=== PATIENT | female | born 1990 ===

== ENCOUNTER 2022-06-29 10:02 | Outpatient (REF) | payer OTHER, SELFPAY ==
[2022-06-29 17:53] LABS: CT PCR NOT DETECTED (Not Detect.); NG PCR NOT DETECTED (Not Detect.)
[2022-06-30 13:01] LABS: BV Int Neg Control Negative (Negative); BV Int Pos Control Positive (Positive)
[2022-07-16 03:38] LABS: HPV 16 RNA NOT DETECTED (NOT DETECTED); HPV mRNA E6/E7 rflx Detected (Not Detected)
== END 2022-06-29 10:03 | disposition home or self-care (01) ==
LOC: HO.LNP 10:02
PROVIDERS: PCP Internal Medicine; Visit Provider Advanced Practice Midwife
DX: Z01.419 Encounter for gynecological examination (general) (routine) without abnormal findings (principal); Z11.51 Encounter for screening for human papillomavirus (HPV); Z20.2 Contact with and (suspected) exposure to infections with a predominantly sexual mode of transmission
CPT/HCPCS: 0353U; 87480; 87510; 87624; 87625; 87660; 88142

== ENCOUNTER 2023-03-16 07:16 | Outpatient (AMB) | payer OTHER, SELFPAY ==
--- NOTE | 2023-03-16 07:30 | A.OFFPC_ITS ---
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 Last Pap smear was June 2022 and was HPV positive. She is morbidly obese with a BMI of 41.9 and declines weight loss surgery. Would like to try Wegovy. No chest pain or shortness of breath. [facility] Surgical History History of bilateral breast reduction surgery History of cosmetic surgery History of tooth extraction Family History Mother Hypertension Breast cancer Sleep apnea Asthma Mental health disorder Father Hypertension Hypercholesteremia Brother Mental health disorder Social History Housing: Apartment Alcohol intake: current Alcohol intake frequency: holidays/special occasions only Alcohol type: wine Patient Tobacco Use Status: Never used Tobacco e-Cigarette/Vaping Use: Never Used Second Hand Smoke Exposure: No service: No Current occupational status: employed Current occupational exposures/hazards: No Cognitive needs: No Hearing needs: No Vision needs: No Questionnaire PHQ-9 Over the last 2 weeks, how often have you been bothered by any of the following problems? 1. Little interest or pleasure in doing things: not at all 2. Feeling down, depressed, or hopeless: not at all 3. Trouble falling or staying asleep, or sleeping too much: not at all 4. Feeling tired or having little energy: not at all 5. Poor appetite or overeating: not at all 6. Feeling bad about yourself - or that you are a failure or have let yourself or your family down: not at all 7. Trouble concentrating on things, such as reading the newspaper or watching television: not at all 8. Moving or speaking so slowly that other people could have noticed. Or the opposite - being so fidgety or restless that you have been moving around a lot more than usual: not at all 9. Thoughts that you would be better off or of hurting yourself in some way: not at all Total score: 0 Depression Screening Interpretation: Negative Depression Screening Done: Yes 53197 - PHQ-9 Billing: Yes Source: Developed by Drs. Sanchez Godron, Claudine Membreno, Ismael Justice and colleagues, with an educational cassandra from [employer]. Thrive Questionnaire Date Thrive assessed: 03/16/23 I am a: Patient What is your living situation today?: I have a steady place to live Within the past 12 months, did the food you bought not last and you didn't have the money to get more?: Never true Within the past 12 months, did you worry whether your food would run out before you got money to buy more?: Never true Do you have trouble paying for medicines?: No Do you have trouble getting transportation to medical appointments?: No Do you have trouble paying your heating and electricity bill?: No Do you have trouble taking care of your child, family member or friend?: No Do you have trouble with day-to-day activities such as bathing, preparing meals, shopping, managing finances, etc.?: No Are you currently unemployed and looking for a job?: No Are you interested in more education?: No Please select the resources that you would like help with: None Currently or been in a relationship where the following occur: no concerns reported AUDIT C Alcohol Use Questionnaire (AUDIT-C) 1. How often do you have a drink containing alcohol?: Monthly or less 2. How many drinks containing alcohol do you have on a typical day when you are drinking?: 1 or 2 3. How often do you have six or more drinks on one occasion?: Never Total Score: 1 Score Reviewed/Action Taken: No RACHEL-7 AMB Questionnaire RACHEL-7 Date RACHEL - 7 assessed: 03/16/23 Feeling nervous, anxious, or on edge: 2 = More than half the days Not being able to stop or control worryin = Not at all Worrying too much about different things: 0 = Not at all Trouble relaxin = Not at all Being so restless that it is hard to sit still: 0 = Not at all Becoming easily annoyed or irritable: 0 = Not at all Feeling afraid as if something awful might happen: 0 = Not at all Total RACHEL-7 score (0-4 normal; 5-9 mild; 10-14 moderate; 15-21 severe): 2 Source: Developed by Drs. Sanchez Gordon, Claudine Membreno, Ismael Justice and colleagues, with an educational cassandra from [employer]. RACHEL-7 Assessment Billing RACHEL-7 Assessment Tool: RACHEL-7 Assessment 44838 Review of Systems Const All systems reviewed & are unremarkable except as noted in HPI and below Eyes Reports no additional complaints, Denies change in vision and Denies other visual disturbances Card Denies chest pain at rest, Denies chest pain with activity, Denies edema, Denies irregular heart rhythm, Denies claudication, Denies dyspnea, Denies dyspnea on exertion, Denies orthopnea, Denies paroxysmal nocturnal dyspnea and Denies slow heart rate Resp Denies cough, Denies dyspnea and Denies dyspnea on exertion GI Denies abdominal pain, Denies change in bowel habits, Denies excessive flatus, Denies nausea and Denies vomiting Denies urinary incontinence, Denies urinary hesitancy and Denies urinary urgency Musc Denies abnormal gait, Denies atrophy, Denies deformity and Denies limited range of motion Skin/Breast Denies bleeding lesions, Denies changing lesions and Denies rash Neuro Denies abnormal gait, Denies behavioral changes, Denies confusion and Denies lack of coordination Psych Denies behavioral changes and Denies confusion Physical exam (Primary Care) Tobacco/Smoking Status: Tobacco use Status Tobacco use date assessed 03/11/22 03/11/22 07:39 Patient Tobacco Use Status Never used Tobacco 03/11/22 07:39 e-Cigarette/Vaping Use Never Used 03/11/22 07:39 Depression Screening Interpretation: Negative Thrive Assessment: Date of Thrive Assessment Date Thrive assessed 03/11/22 03/11/22 07:39 Currently or been in a relationship where the following occur: no concerns reported Const General: No confusion Orientation/consciousness: patient oriented x3 and No confusion HENMT Head: Yes normal to inspection, Yes normocephalic and Yes atraumatic Ears: external ears normal Eyes General: appearance normal, both eyes and all related structures Eyelids: Yes eyelids normal Conjunctivae: conjunctivae normal Neck Neck: Yes normal visual inspection and Yes supple Resp Effort & Inspection: normal respiratory effort Auscultation: clear to auscultation bilaterally Cardio Jugular venous distension: no JVD Rate: regular rate Rhythm: regular rhythm Heart sounds: S1 normal heart sound present and S2 normal heart sound present GI Inspection: Yes normal to inspection Palpation (GI): Soft to palpation and nontender Auscultation: normal bowel sounds Skin General skin exam: no rashes or lesions noted Neuro General: patient oriented x3, no focal motor deficits and No confusion Extrem General: Yes full ROM Psych Appearance: grossly normal Office Procedures Flu Questionnaire Does the patient have a severe egg allergy?: No Immunizations flu vacc [id number] 6mos up(PF) 60 mcg(15 mcgx4)/0.5 mL IM syringe Performing Provider: Madelin Rodriguez MD [facility] Documented (not given) by: RICHI Poole on 03/16/23 07:37 Reason Not Given: Patient Refused Assessment and Plan Assessment & Plan (1) Physical exam: Code(s): Z00.00 - Encounter for general adult medical examination without abnormal findings Plan: Repeat in a year. (2) Morbid obesity with BMI of 40.0-44.9, adult: Code(s): E66.01 - Morbid (severe) obesity due to excess calories; Z68.41 - Body mass index [BMI] 40.0-44.9, adult Plan: Start diet and exercise. Start Wegovy. Declines weight loss surgery. BMI goal is less than 30. Orders: Orders Influenza [id number] Immunization Today Z23 - Encounter for immunization Lipid Panel Today Z00.00 - Encounter for general adult medical examination without abnormal findings Complete Blood Count Auto Diff Today E66.01 - Morbid (severe) obesity due to excess calories, Z68.41 - Body mass index [BMI] 40.0-44.9, adult Thyroid Stimulating Hormone Today E66.01 - Morbid (severe) obesity due to excess calories, Z68.41 - Body mass index [BMI] 40.0-44.9, adult Comprehensive [place]. Panel Fast Today Z00.00 - Encounter for general adult medical examination without abnormal findings Medications: New 2 semaglutide (weight loss) (Wegovy) administer weeks 1 through 4 of therapy 0.25 mg (0.5 mL) subcut QWEEK 28 days 2 mL 0RF E66.01 - Morbid (severe) obesity due to excess calories, Z68.41 - Body mass index [BMI] 40.0-44.9, adult sertraline 25 mg PO DAILY 90 days 90 tabs 1RF F41.9 - Anxiety disorder, unspecified Coding Level of Care Code Est Pt Prev Care 18-39y(11156) Diagnoses Physical exam Z00.00 Morbid obesity with BMI of 40.0-44.9, adult E66.01; Z68.41 Additional Codes RACHEL-7 Assessment Billing - RACHEL-7 Assessment Tool: RACHEL-7 Assessment [id number] ([id number]) Time Spent (min) 31
[2023-03-16 07:31] VITALS: BP 110/80; BMI 41.9
== END 2023-03-16 07:47 | disposition home or self-care (01) ==
PROVIDERS: Visit Provider Internal Medicine
DX: Z00.00 Encounter for general adult medical examination without abnormal findings (principal); E66.01 Morbid (severe) obesity due to excess calories; Z68.41 Body mass index [BMI] 40.0-44.9, adult
CPT/HCPCS: 99395

== ENCOUNTER 2023-10-25 11:23 | Outpatient (REF) | payer OTHER, SELFPAY ==
[2023-10-26 03:38] LABS: CT PCR NOT DETECTED (Not Detect.); NG PCR NOT DETECTED (Not Detect.)
[2023-10-26 11:45] LABS: Bacterial Vaginosis PCR NEGATIVE (Negative); Candida Group PCR NOT DETECTED (Not Detect); Candida glab krusei PCR DETECTED (Not Detect); Trichomonas vaginalis PCR NOT DETECTED (Not Detect)
[2023-10-28 16:14] LABS: HPV mRNA E6/E7 Detected (Not Detected)
== END 2023-10-25 11:24 | disposition home or self-care (01) ==
LOC: HO.LAB 11:23
PROVIDERS: PCP Internal Medicine; Visit Provider Advanced Practice Midwife
DX: Z01.419 Encounter for gynecological examination (general) (routine) without abnormal findings (principal); Z11.51 Encounter for screening for human papillomavirus (HPV); Z20.2 Contact with and (suspected) exposure to infections with a predominantly sexual mode of transmission; N89.8 Other specified noninflammatory disorders of vagina
CPT/HCPCS: 0352U; 36415; 87491; 87591; 87624; 88175

== ENCOUNTER 2023-10-25 11:23 | Outpatient (AMB) | payer OTHER, SELFPAY ==
[2023-10-25 11:44] VITALS: BP 118/70; BMI 43.5
--- NOTE | 2023-10-25 11:44 | A.OFFVIS_ITS ---
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 She is currently planning to be abstinent. 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 She will be switching primary care providers in the coming future. She is wanting to get healthier. [facility] Surgical History History of bilateral breast reduction surgery History of cosmetic surgery History of tooth extraction Family History Mother Hypertension Breast cancer Sleep apnea Asthma Mental health disorder Father Hypertension Hypercholesteremia Brother Mental health disorder Social History Housing: Apartment Alcohol intake: current Alcohol intake frequency: holidays/special occasions only Alcohol type: wine Patient Tobacco Use Status: Never used Tobacco e-Cigarette/Vaping Use: Never Used Second Hand Smoke Exposure: No service: No Current occupational status: employed Current occupational exposures/hazards: No Cognitive needs: No Hearing needs: No Vision needs: No Female Reproductive History Menstrual Age of Menarche: 12 Duration of menses: 3-5 days Date of last menstrual period: 09/29/23 control method: none Total pregnancies: 0 Date of last pap smear: 06/30/22 (negative,hpv+) Physical Exam Vital Signs: BMI result Body Mass Index 43.5 Const General: healthy appearing, comfortable, no acute distress, well developed and alert Nutritional Appearance: average body habitus Orientation/consciousness: patient oriented x3 Limitations: no limitations HEENT Head: Yes normocephalic Neck Neck: Yes normal visual inspection Chest Chest palpation & inspection: normal inspection of the chest Breast/axilla inspection: normal inspection of the breasts and normal inspection of the axillae Breast/axilla palpation: normal palpation of the breasts and normal palpation of the axillae Resp Effort & Inspection: normal respiratory effort GI Inspection: Yes normal to inspection, No Abdominal wall edema and No distended Palpation (GI): Soft to palpation and nontender General: Yes bladder normal to palpation External Female Exam: normal external appearance and normal appearance of the urethra Speculum Exam - Vagina: normal appearance of the vagina, normal palpation and normal vaginal discharge Speculum Exam - Cervix: normal appearance of the cervix, normal palpation and nontender Bimanual exam- vagina & uterus: normal bimanual exam, normal palpation, uterine size normal, bladder normal to palpation, consistency normal, normal palpation, uterine mobility normal, uterine shape normal, No Cervical tenderness present, non-tender and no cervical motion tenderness Bimanual Exam- Adnexa, other: normal adnexae, no masses, normal and No adnexal tenderness Neuro General: patient oriented x3 Results Reviewed Results Reviewed: faith: Yesi Hatfield Age/Sex: 31/F Attending: Kiarra Ricks CNM : 1990 Submitted by: Kiarra Ricks CNM Copies to: Madelin Pendleton MD MR #: [id number] Status: DEP REF Collected: 06/29/22 Location: [facility] Received: 06/30/22 ADDENDUM REPORT Addendum Addendum #1 HPV mRNA E6/E7: DETECTED This assay detects E6/E7 viral messenger RNA (mRNA) from 14 high-risk HPV types (16, 18, 31, 33, 35, 39, 45, 51, 52, 56, 58, 59, 66, 68) HPV Type 16 RNA: Not Detected HPV Type 18/45 RNA: DETECTED HPV testing performed by [employer], [place]. See reference laboratory portion of the EMR for entire report. Electronically Signed By: Radha Beverly 07/22/221931 Interpretation Satisfactory for evaluation. Negative for intraepithelial lesion or malignancy. Clinical Information LMP: 06/19/22 Previous PAP test: 2019, WNL Material Received ThinPrep-Cervical Copies To Kiarra Ricks [address] Zhang [address] [place] [id number] Patient: Yesi Hatfield Age/Sex: 31/F MR#: [id number] Page 1 of 2 Assessment & Plan Assessment & Plan (1) Vaso-vagal reaction: Comment: With Pap smear; patient states it happens with blood draws as well. Code(s): R55 - Syncope and collapse Category: Medical (2) Well woman exam with routine gynecological exam: Comment: Speculum and Pap done; bimanual deferred secondary to vasovagal reaction>.. Code(s): Z01.419 - Encounter for gynecological examination (general) (routine) without abnormal findings Category: Medical (3) Cervical cancer screening: Comment: 06/29/2022 Pap is negative but HPV got omitted. I am ordering it now.-07/27/2022 high risk HPV is positive. She needs repeat Pap smear next year Code(s): Z12.4 - Encounter for screening for malignant neoplasm of cervix Category: Medical (4) Screen for sexually transmitted diseases: Code(s): Z11.3 - Encounter for screening for infections with a predominantly sexual mode of transmission Category: Medical (5) Morbid obesity with BMI of 40.0-44.9, adult: Code(s): E66.01 - Morbid (severe) obesity due to excess calories; Z68.41 - Body mass index [BMI] 40.0-44.9, adult Category: Medical Plan -----Discussed in this visit the following: healthy balanced diet, regular and consistent exercise, getting recommended health screens, doing the best she can for her particular health concerns, kegel exercises, pap smear screening and followup recommendations, mammography screening and SBE, normal changes in cycles in her life stage--- Reviewed her wonderful plans to embrace again, and plans to continue working towards a healthier life. Labs were in the system that were for fasting labs from February from her [facility] so she is going to get those done. Full and wonderful conversation about work experiences and wisdom gained. 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 Issues around HPV discussed in detail. Currently her periods are regular she is aware of symptoms of ovulation and premenstrual symptoms she has no issues with missed menses or increased facial hair or any other indications that would warrant any testing for PCOS. A TSH level was ordered by her primary care provider along with fasting metabolic labs and lipids screens. Note she had no vasovagal response this time. She does intend to inform calcine furnace loader of her fear of needles. Orders: Orders Hepatitis B Surface Antigen Today E66.01 - Morbid (severe) obesity due to excess calories, R55 - Syncope and collapse, Z01.419 - Encounter for gynecological examination (general) (routine) without abnormal findings, Z11.3 - Encounter for screening for infections with a predominantly sexual mode of transmission, Z12.4 - Encounter for screening for malignant neoplasm of cervix, Z68.41 - Body mass index [BMI] 40.0-44.9, adult Hepatitis C Antibody Today E66.01 - Morbid (severe) obesity due to excess calories, R55 - Syncope and collapse, Z01.419 - Encounter for gynecological examination (general) (routine) without abnormal findings, Z11.3 - Encounter for screening for infections with a predominantly sexual mode of transmission, Z12.4 - Encounter for screening for malignant neoplasm of cervix, Z68.41 - Body mass index [BMI] 40.0-44.9, adult HIV Ab/Ag Today E66.01 - Morbid (severe) obesity due to excess calories, R55 - Syncope and collapse, Z01.419 - Encounter for gynecological examination (general) (routine) without abnormal findings, Z11.3 - Encounter for screening for infections with a predominantly sexual mode of transmission, Z12.4 - Encounter for screening for malignant neoplasm of cervix, Z68.41 - Body mass index [BMI] 40.0-44.9, adult Syphilis Screen Today E66.01 - Morbid (severe) obesity due to excess calories, R55 - Syncope and collapse, Z01.419 - Encounter for gynecological examination (general) (routine) without abnormal findings, Z11.3 - Encounter for screening for infections with a predominantly sexual mode of transmission, Z12.4 - Encounter for screening for malignant neoplasm of cervix, Z68.41 - Body mass index [BMI] 40.0-44.9, adult Coding Level of Care Code Est Pt Prev Care 18-39y(48126) Diagnoses Vaso-vagal reaction R55 Well woman exam with routine gynecological exam Z01.419 Cervical cancer screening Z12.4 Screen for sexually transmitted diseases Z11.3 Morbid obesity with BMI of 40.0-44.9, adult E66.01; Z68.41
== END 2023-10-25 13:24 | disposition home or self-care (01) ==
LOC: HO.HWSM 11:23
PROVIDERS: PCP Internal Medicine; Visit Provider Advanced Practice Midwife
DX: Z01.419 Encounter for gynecological examination (general) (routine) without abnormal findings (principal); R55 Syncope and collapse; E66.01 Morbid (severe) obesity due to excess calories; Z68.41 Body mass index [BMI] 40.0-44.9, adult
CPT/HCPCS: 99395

== ENCOUNTER 2023-10-28 11:19 | Outpatient (REF) | payer OTHER, SELFPAY ==
[2023-10-28 12:48] LABS: HBsAGNum1 0.23 S/CO (0.00-0.99); HIV AB/AG Nonreactive (Nonreactive); HIV Num 1 0.05 S/CO (0.00-0.99); Hepatitis B Surface Antigen Negative (Negative); ~HepC Num1 0.19 S/CO (0.00-0.79); ~Hepatitis C Antibody Nonreactive (Nonreactive)
[2023-10-28 13:13] LABS: Syphilis Screen Nonreactive (Nonreactive)
== END 2023-10-28 11:20 | disposition home or self-care (01) ==
LOC: HO.LAB 11:19
PROVIDERS: Absent Provider Internal Medicine; PCP Internal Medicine; Visit Provider Advanced Practice Midwife
DX: Z01.419 Encounter for gynecological examination (general) (routine) without abnormal findings (principal); E66.01 Morbid (severe) obesity due to excess calories; Z68.41 Body mass index [BMI] 40.0-44.9, adult; R55 Syncope and collapse; Z12.4 Encounter for screening for malignant neoplasm of cervix; Z11.3 Encounter for screening for infections with a predominantly sexual mode of transmission
CPT/HCPCS: 36415; 86780; 86803; 87340; 87389

== ENCOUNTER 2023-12-08 14:48 | Outpatient (AMB) | payer OTHER, SELFPAY ==
--- NOTE | 2023-12-08 14:58 | MHC.OFFVIS ---
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 Information Interpreted: non-clinical & clinical Retail Advertising Sales Manager: Retail Advertising Sales Manager Present (Татьяна STODDARD) Accompanied by: Self / Same As Patient Allergies No Known Allergies Allergy (Verified 12/08/23 15:04) HPI Comments Details: Presenting for colposcopy regarding Pap smear showing ascus/HPV E6 E7 positive, HPV 16/18/45 negative PFSH Surgical History History of bilateral breast reduction surgery History of cosmetic surgery History of tooth extraction Family History Mother Hypertension Breast cancer Sleep apnea Asthma Mental health disorder Father Hypertension Hypercholesteremia Brother Mental health disorder Social History Housing: Apartment Alcohol intake: current Alcohol intake frequency: holidays/special occasions only Alcohol type: wine Patient Tobacco Use Status: Never used Tobacco e-Cigarette/Vaping Use: Never Used Second Hand Smoke Exposure: No service: No Current occupational status: employed Current occupational exposures/hazards: No Cognitive needs: No Hearing needs: No Vision needs: No Female Reproductive History Menstrual Age of Menarche: 12 Review of Systems Const All systems reviewed & are unremarkable except as noted in HPI and below Reports as per HPI and Reports no additional complaints GI Reports no additional complaints Reports no additional complaints Physical Exam Vital Signs: BMI result Body Mass Index 43.3 Office Procedures Colposcopy Colposcopy: Pre-Procedure Counseling: Before beginning the procedure, I conducted comprehensive counseling with the patient. We thoroughly discussed the procedure itself, including its details, alternatives, and all associated risks. This included but not limited to the following complications such as bleeding, infection, and injury to the vagina, bladder, and vessels, as well as the potential need for transfusion with all its associated risks. Subsequently, the patient sign the consent. Pap smear result: Ascus/HPV E6 E7 positive Urine test in office = Negative Procedure: During the procedure, the following steps were performed: A speculum was inserted, and acetic acid was applied. Colposcopy was conducted, allowing visualization of the transformation zone. Acetowhite lesions were identified at the 5+6+8 o'clock position. Cervical biopsies were obtained from the 5+6+8 o'clock position, followed by an endocervical curettage (ECC). Vaginoscopy of the upper vagina revealed no evidence of aceto-white lesions. Hemostasis was achieved using Monsel solution, and the patient tolerated the procedure well. Post-Procedure Instructions: The patient was advised to promptly contact the office or the after hours answering service or go to the emergency room if experiencing a temperature exceeding 100.4?F, abdominal pain, nausea/vomiting, or bleeding. Additionally, the patient was instructed to abstain from vaginal intercourse and bathtub use. The patient confirmed understanding of these instructions. Discharge Instructions: The patient was instructed to schedule a follow-up appointment in 2 weeks for further evaluation and management. Please note that this note was generated using a voice recognition program, and errors may have occurred during assembler steam and gas turbine. [id number] of cervix including upper vagina with biopsy and ECC Procedure code (CPT) selection complete Results AMB Test Urine AMB Test Urine Negative Last Edit by Татьяна Montejo CMA on 12/08/23 15:13 Results Reviewed Results Reviewed: Laboratory Last Values Tst Clinic Negative 12/08/23 15:13 Assessment & Plan Assessment & Plan (1) ASCUS with positive high risk HPV cervical: Code(s): R87.610 - Atypical squamous cells of undetermined significance on cytologic smear of cervix (ASC-US); R87.810 - Cervical high risk human papillomavirus (HPV) DNA test positive Category: Medical Plan: Discussed with the patient the result of her abnormal pap, its significance, risk of progression, persistence, and regression. the false positive/negative rate of a Pap smear as a screening test in detecting cervical cancer and the indication for a diagnostic test -colposcopy, biopsy, endocervical curettage. The patient verbalized understanding and agreed with the plan, all questions answered. Colposcopy/biopsy/ECC done, see procedure note Orders: Orders AMB HCG Urine Test Today Z32.02 - Encounter for test, result negative AMB Colposcopy Today R87.610 - Atypical squamous cells of undetermined significance on cytologic smear of cervix (ASC-US), R87.810 - Cervical high risk human papillomavirus (HPV) DNA test positive Coding Level of Care Code Procedure Only Diagnoses ASCUS with positive high risk HPV cervical R87.610; R87.810 CPT Codes Colposcopy - CPT: 53243-Jolbgkelx of cervix including upper vagina with biopsy and ECC ([id number])
[2023-12-08 15:04] VITALS: BMI 43.3
== END 2023-12-08 15:59 | disposition home or self-care (01) ==
PROVIDERS: PCP Internal Medicine; Visit Provider Obstetrics & Gynecology
DX: R87.610 Atypical squamous cells of undetermined significance on cytologic smear of cervix (ASC-US) (principal); R87.810 Cervical high risk human papillomavirus (HPV) DNA test positive; Z32.02 Encounter for pregnancy test, result negative
CPT/HCPCS: 57454

== ENCOUNTER 2023-12-08 14:48 | Outpatient (REF) | payer OTHER, SELFPAY | END 2023-12-08 14:49 | disposition home or self-care (01) | LOC: HO.LNP 14:48 | PROVIDERS: PCP Internal Medicine; Visit Provider Obstetrics & Gynecology | DX: R87.610 Atypical squamous cells of undetermined significance on cytologic smear of cervix (ASC-US) (principal); R87.810 Cervical high risk human papillomavirus (HPV) DNA test positive | CPT/HCPCS: 57454; 81025; 88305 ==

== ENCOUNTER 2024-01-03 12:09 | Outpatient (AMB) | payer OTHER, SELFPAY ==
[2024-01-03 12:11] VITALS: BMI 43.3
--- NOTE | 2024-01-03 12:11 | MHC.OFFVIS ---
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 The patient is doing well with no complaints. The pathology showed the following: A. Endocervix, curettage: Endocervical mucosa within normal limits. B. Cervix, 5 o'clock, biopsy: - Low-grade squamous intraepithelial lesion (LEXI 1). - Endocervical mucosa within normal limits. C. Cervix, 6 o'clock, biopsy: Squamous and endocervical mucosa within normal limits. D. Cervix, 8 o'clock, biopsy: Squamous and endocervical mucosa within normal limits [facility] Surgical History History of bilateral breast reduction surgery History of cosmetic surgery History of tooth extraction Family History Mother Hypertension Breast cancer Sleep apnea Asthma Mental health disorder Father Hypertension Hypercholesteremia Brother Mental health disorder Social History Housing: Apartment Alcohol intake: current Alcohol intake frequency: holidays/special occasions only Alcohol type: wine Patient Tobacco Use Status: Never used Tobacco e-Cigarette/Vaping Use: Never Used Second Hand Smoke Exposure: No service: No Current occupational status: employed Current occupational exposures/hazards: No Cognitive needs: No Hearing needs: No Vision needs: No Female Reproductive History Menstrual Age of Menarche: 12 Review of Systems Const All systems reviewed & are unremarkable except as noted in HPI and below Reports as per HPI and Reports no additional complaints GI Reports no additional complaints Reports no additional complaints Physical Exam Vital Signs: BMI result Body Mass Index 43.3 Assessment & Plan Assessment & Plan (1) Dysplasia of cervix, low grade (LEXI 1): Code(s): N87.0 - Mild cervical dysplasia Category: Medical Plan: Discussed with the patient the pathology results of the colposcopy biopsies & endocervical curettage ( mild dysplasia-LEXI 1). Discussed with the patient the sensitivity specificity, positive and negative predictive value in detecting cervical cancer in addition discussed the regression, persistence and progression rates. Recommended co-testing in 12 months, if cytology and or HPV are abnormal will proceed was colposcopy biopsy and endocervical curettage, if lesions gets worse or stays persistent for 2 years will proceed with loop electric excision procedure. Instructions given to the patient to schedule a co test appointment in 1 year. All questions answered the patient verbalized understanding. Coding Level of Care Code Est Pt Level 3 (21499) Diagnoses Dysplasia of cervix, low grade (LEXI 1) N87.0
== END 2024-01-03 12:31 | disposition home or self-care (01) ==
LOC: HO.HWS 12:09
PROVIDERS: PCP Internal Medicine; Visit Provider Obstetrics & Gynecology
DX: N87.0 Mild cervical dysplasia (principal)
CPT/HCPCS: 99213

== ENCOUNTER → 2024-01-03 12:09 | Outpatient (BNVA) | payer OTHER, SELFPAY | PROVIDERS: PCP Internal Medicine; Visit Provider Obstetrics & Gynecology ==

== ENCOUNTER 2024-03-19 10:26 | Outpatient (AMB) | payer OTHER, SELFPAY ==
--- NOTE | 2024-03-19 10:28 | A.OFFPC_ITS ---
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 Accompanied by: Self / Same As Patient Allergies No Known Allergies Allergy (Verified 03/19/24 10:57) Medication List - Last Reconciled 03/19/24 by Madelin Rodriguez MD duloxetine 40 mg PO BID Tobacco use date assessed: 03/19/24 Dental Screening Dental Screen Date: 03/19/24 Did you have a dental visit in the last 12 months?: Yes Did you have a dental problem in the last 6 months where you did not have access to dental care?: No Was dental information given to patient?: Patient has dentist HPI HPI Comments History of Present Illness Details The patient is a 33-year-old female presenting for her routine physical examination. She previously had a Pap smear in 2022, which tested positive for HPV, prompting a follow-up. This resulted in an irregular Pap smear requiring a biopsy, which ultimately showed a benign lesion. The patient expressed anxiety regarding these findings, noting that they exacerbated her existing depression and anxiety. She has a history of cosmetic breast reduction surgery. The family history is significant for her mother having a history of breast cancer, hypertension, asthma, and diabetes, while her father has high cholesterol and coronary artery disease. She does not report any allergies and is currently taking duloxetine 40 mg daily for depression and anxiety. Recently, she has noticed changes in her menstrual cycle, including increased bleeding and emotional symptoms. - Tdap vaccination is up to date. - No history of flu vaccination to date. - Previous Pap smear in 2022 reported as HPV positive, with subsequent biopsy confirming benign cervical lesion. - Regular psychiatric follow-up for priscilla r depressive disorder and generalized anxiety disorder. - Dietary improvements discussed, with i nterest in pursuing weight loss through pharmacological therapy. - Plan to check blood work, including ch olesterol, sugar levels, renal function, liver function, thyroid, and potassium. [facility] Surgical History History of bilateral breast reduction surgery History of cosmetic surgery History of tooth extraction Family History (Updated 03/19/24 @ 11:02 by Madelin Rodriguez MD) Mother Hypertension Breast cancer Sleep apnea Asthma Mental health disorder Diabetes mellitus Father Hypertension Hypercholesteremia CAD (coronary artery disease) Brother Mental health disorder Social History Housing: Apartment Alcohol intake: current Alcohol intake frequency: holidays/special occasions only Alcohol type: wine Patient Tobacco Use Status: Never used Tobacco e-Cigarette/Vaping Use: Never Used Second Hand Smoke Exposure: No service: No Current occupational status: employed Current occupational exposures/hazards: No Cognitive needs: No Hearing needs: No Vision needs: No Female Reproductive History Menstrual Age of Menarche: 12 Questionnaire PHQ-9 Over the last 2 weeks, how often have you been bothered by any of the following problems? 1. Little interest or pleasure in doing things: not at all 2. Feeling down, depressed, or hopeless: several days 3. Trouble falling or staying asleep, or sleeping too much: several days 4. Feeling tired or having little energy: several days 5. Poor appetite or overeating: several days 6. Feeling bad about yourself - or that you are a failure or have let yourself or your family down: several days 7. Trouble concentrating on things, such as reading the newspaper or watching television: not at all 8. Moving or speaking so slowly that other people could have noticed. Or the opposite - being so fidgety or restless that you have been moving around a lot more than usual: several days 9. Thoughts that you would be better off or of hurting yourself in some way: not at all Total score: 6 Depression Screening Interpretation: Positive Depression Screening Follow-up: Existing condition, In treatment and Follow-up Visit Requested Depression Screening Done: Yes 05679 - PHQ-9 Billing: Yes Source: Developed by Drs. Sanchez Gordon, Claudine Membreno, Ismael Justice and colleagues, with an educational cassandra from [employer] Thrive Questionnaire Date Thrive assessed: 03/19/24 I am a: Patient What is your living situation today?: I have a steady place to live Within the past 12 months, did the food you bought not last and you didn't have the money to get more?: Never true Within the past 12 months, did you worry whether your food would run out before you got money to buy more?: Never true Do you have trouble paying for medicines?: No Do you have trouble getting transportation to medical appointments?: No Do you have trouble paying your heating and electricity bill?: No Do you have trouble taking care of your child, family member or friend?: No Do you have trouble with day-to-day activities such as bathing, preparing meals, shopping, managing finances, etc.?: No Are you currently unemployed and looking for a job?: No Are you interested in more education?: No Please select the resources that you would like help with: None Currently or been in a relationship where the following occur: No concerns reported THRIVE Score: 0 AUDIT C Alcohol Use Questionnaire (AUDIT-C) 1. How often do you have a drink containing alcohol?: Monthly or less 2. How many drinks containing alcohol do you have on a typical day when you are drinking?: 1 or 2 3. How often do you have six or more drinks on one occasion?: Never Total Score: 1 RACHEL-7 AMB Questionnaire RACHEL-7 Date RACHEL - 7 assessed: 03/19/24 Feeling nervous, anxious, or on edge: 1 = Several days Not being able to stop or control worryin = Several days Worrying too much about different things: 1 = Several days Trouble relaxin = Several days Being so restless that it is hard to sit still: 0 = Not at all Becoming easily annoyed or irritable: 0 = Not at all Feeling afraid as if something awful might happen: 0 = Not at all Total RACHEL-7 score (0-4 normal; 5-9 mild; 10-14 moderate; 15-21 severe): 4 Source: Developed by Drs. Sanchez Gordon, Claudine Membreno, Ismael Justice and colleagues, with an educational cassandra from [employer] RACHEL-7 Assessment Billing RACHEL-7 Assessment Tool: RACHEL-7 Assessment 53684 Review of Systems Const All systems reviewed & are unremarkable except as noted in HPI and below Card Denies chest pain at rest, Denies chest pain with activity, Denies edema, Denies irregular heart rhythm, Denies claudication, Denies dyspnea, Denies dyspnea on exertion, Denies orthopnea, Denies paroxysmal nocturnal dyspnea and Denies slow heart rate Resp Denies cough, Denies dyspnea and Denies dyspnea on exertion GI Denies abdominal pain, Denies change in bowel habits, Denies excessive flatus, Denies nausea and Denies vomiting Denies urinary incontinence, Denies urinary hesitancy and Denies urinary urgency Musc Denies abnormal gait, Denies atrophy, Denies deformity and Denies limited range of motion Skin/Breast Denies bleeding lesions, Denies changing lesions and Denies rash Neuro Denies abnormal gait, Denies behavioral changes, Denies confusion and Denies lack of coordination Psych Denies behavioral changes and Denies confusion Physical exam (Primary Care) Vital Signs: Last Vital Signs BP 112/80 03/19/24 10:32 BMI result Body Mass Index 43.5 BMI Assessment/Plan discussion: High BMI High, discussed plan: lifestyle, weight reduction, dietary and physical activity Tobacco/Smoking Status: Tobacco use Status Tobacco use date assessed 03/19/24 03/19/24 10:32 Patient Tobacco Use Status Never used Tobacco 03/19/24 10:32 e-Cigarette/Vaping Use Never Used 03/19/24 10:32 PHQ-9: PHQ-9 Score PHQ-9: Total score 6 03/19/24 11:02 Depression Screening Interpretation: Positive Depression Screening Follow-up: Existing condition, In treatment and Follow-up Visit Requested Thrive Assessment: Date of Thrive Assessment Date Thrive assessed 03/19/24 03/19/24 10:32 Currently or been in a relationship where the following occur: No concerns reported Const General: No confusion Orientation/consciousness: patient oriented x3 and No confusion HENMT Head: Yes normal to inspection, Yes normocephalic and Yes atraumatic Ears: external ears normal Eyes General: appearance normal, both eyes and all related structures Eyelids: Yes eyelids normal Conjunctivae: conjunctivae normal Neck Neck: Yes normal visual inspection and Yes supple Resp Effort & Inspection: normal respiratory effort Auscultation: clear to auscultation bilaterally Cardio Jugular venous distension: no JVD Rate: regular rate Rhythm: regular rhythm Heart sounds: S1 normal heart sound present and S2 normal heart sound present GI Inspection: Yes normal to inspection Palpation (GI): Soft to palpation and nontender Auscultation: normal bowel sounds Skin General skin exam: no rashes or lesions noted Neuro General: patient oriented x3, no focal motor deficits and No confusion Extrem General: Yes full ROM Psych Appearance: grossly normal Office Procedures Flu Questionnaire Does the patient have a severe egg allergy?: No Immunizations Fluarix Triv [id number] (PF) 45 mcg (15 mcg x 3)/0.5 mL IM syringe Performing Provider: Madelin Rodriguez MD [place] [facility] [facility] Documented (not given) by: Jill Schneider Shawn on 03/19/24 11:19 Reason Not Given: Patient Refused Coding Level of Care Code Est Pt Level 3 (86348) Est Pt Prev Care 18-39y(94367) Diagnoses Physical exam Z00.00 Mild major depression F32.0 Morbid obesity with BMI of 40.0-44.9, adult E66.01; Z68.41 Additional Codes PHQ-9 - 25281 - PHQ-9 Billing: Yes ([id number]) RACHEL-7 Assessment Billing - RACHEL-7 Assessment Tool: RACHEL-7 Assessment 31085 ([id number]) Time Spent (min) 33 Assessment & Plan Assessment & Plan (1) Physical exam: Code(s): Z00.00 - Encounter for general adult medical examination without abnormal findings Category: Medical Plan: Repeat in a year. (2) Mild major depression: Code(s): F32.0 - Major depressive disorder, single episode, mild Category: Medical Plan: Continue duloxetine. (3) Morbid obesity with BMI of 40.0-44.9, adult: Code(s): E66.01 - Morbid (severe) obesity due to excess calories; Z68.41 - Body mass index [BMI] 40.0-44.9, adult Category: Medical Plan: Start diet and exercise. Start Zepbound if insurance approved. Orders: Orders Lipid Panel Today E66.01 - Morbid (severe) obesity due to excess calories, Z68.41 - Body mass index [BMI] 40.0-44.9, adult Thyroid Stimulating Hormone Today E66.01 - Morbid (severe) obesity due to excess calories, Z68.41 - Body mass index [BMI] 40.0-44.9, adult Free T4 (Free Thyroxine) Today E66.01 - Morbid (severe) obesity due to excess calories, Z68.41 - Body mass index [BMI] 40.0-44.9, adult Influenza [id number] Immunization Today Z23 - Encounter for immunization Comprehensive [place]. Panel Fast Today E66.01 - Morbid (severe) obesity due to excess calories, Z68.41 - Body mass index [BMI] 40.0-44.9, adult Complete Blood Count Auto Diff Today E66.01 - Morbid (severe) obesity due to excess calories, Z68.41 - Body mass index [BMI] 40.0-44.9, adult Medications: New duloxetine 40 mg (2 x 20 mg) PO DAILY 90 days 180 caps 1RF F32.0 - Major depressive disorder, single episode, mild tirzepatide (weight loss) (Zepbound) for 4 weeks 2.5 mg (0.5 mL) subcut QWEEK 4 weeks 2 mL 0RF E66.01 - Morbid (severe) obesity due to excess calories, Z68.41 - Body mass index [BMI] 40.0- 44.9, adult Patient Instructions: - Continue duloxetine as prescribed, monitoring for any side effects. - Schedule follow-ups for cervical screening as directed. - Implement dietary advice focusing on increased protein intake and reduced sugars. - Attend routine psychotherapy and psychiatric consultations. - Proceed with ordered blood work, and arrange for review of results. - Report any new or worsening symptoms, particularly related to menstruation. - Follow up if insurance does not approve medication; consider alternative weight management strategies. - Seek medical attention if experiencing severe side effects from prescribed medications.
[2024-03-19 10:32] VITALS: BP 112/80; BMI 43.5
== END 2024-03-19 11:14 | disposition home or self-care (01) ==
PROVIDERS: PCP Internal Medicine; Visit Provider Internal Medicine
DX: Z00.00 Encounter for general adult medical examination without abnormal findings (principal); F32.0 Major depressive disorder, single episode, mild; E66.01 Morbid (severe) obesity due to excess calories; Z68.41 Body mass index [BMI] 40.0-44.9, adult; Z23 Encounter for immunization

== ENCOUNTER → 2024-03-19 10:26 | Outpatient (BNVA) | payer OTHER, SELFPAY | PROVIDERS: PCP Internal Medicine; Visit Provider Internal Medicine | DX: Z00.00 Encounter for general adult medical examination without abnormal findings (principal); F32.0 Major depressive disorder, single episode, mild; E66.01 Morbid (severe) obesity due to excess calories; Z68.41 Body mass index [BMI] 40.0-44.9, adult; Z79.899 Other long term (current) drug therapy | CPT/HCPCS: 96127 ==

== ENCOUNTER 2024-04-02 08:55 | Outpatient (REF) | payer OTHER, SELFPAY ==
[2024-04-02 09:22] LABS: MANUAL DIFF FLAG NO
[2024-04-02 09:39] LABS: Basophils Percent Auto 0.4 % (0-2); Eosinophils Absolute Auto 0.1 X10*3/uL (0.0-0.4); Hematocrit 43.8 % (37.0-47.0); Hemoglobin 13.8 g/dl (12.0-16.0); Imm Gran Abs Auto 0.04 X10*3/uL (0.00-0.03); Imm Gran Pct Auto 0.4 % (0.0-0.4); Lymphocytes Absolute Auto 2.1 X10*3/uL (1.2-4.9); Lymphocytes Percent Auto 23.7 % (20-40); Mean Corpuscular HGB Conc 31.5 g/dl (31.0-35.0); Mean Corpuscular Hemoglobin 27.4 pg (27.0-33.0); Mean Corpuscular Volume 87.1 fL (80.0-98.0); Mean Platelet Volume 9.3 fL (9.4-12.3); Monocytes Absolute Auto 0.6 X10*3/uL (0.1-1.2); Monocytes Percent Auto 6.5 % (2-11); Neutrophils Absolute Auto 6.1 x10*3/uL (2.0-8.3); Platelet Count 362 X10*3/uL (160-400); Red Blood Count 5.03 X10*6/uL (4.20-5.50)
[2024-04-02 10:34] LABS: Alanine Aminotransferase 14 U/L (0-31); Albumin Level 3.6 g/dL (3.5-5.0); Alkaline Phosphatase 116 U/L (39-117); Anion Gap 12 (12-20); Aspartate Amino Transferase 42 U/L (5-31); Bilirubin Total 0.6 mg/dL (0.0-1.0); Blood Urea Nitrogen 6 mg/dL (9-16); Calcium 8.8 mg/dL (8.4-10.2); Carbon Dioxide 23 mmol/L (22-29); Chloride 110 mmol/L (96-108); Cholesterol 198 mg/dL (<200); Estimated Glomerular Filt Rate > 60; Free T4 (Free Thyroxine) 1.14 ng/dL (0.71-1.85); Glucose Fasting 90 mg/dL (60-99); HDL Cholesterol 54 mg/dL (>40); LDL Cholesterol Calculated 124 mg/dL (<100); Potassium 4.9 mmol/L (3.3-5.1); Sodium 140 mmol/L (135-145); Thyroid Stimulating Hormone 1.31 uIU/mL (0.32-4.0); Total Protein 8.2 g/dL (6.5-8.0); Triglycerides 104 mg/dL (<150)
== END 2024-04-02 08:56 | disposition home or self-care (01) ==
LOC: HO.LAB 08:55
PROVIDERS: PCP Internal Medicine; Visit Provider Internal Medicine
DX: E66.01 Morbid (severe) obesity due to excess calories (principal); Z68.41 Body mass index [BMI] 40.0-44.9, adult
CPT/HCPCS: 36415; 80053; 80061; 84439; 84443; 85025

== ENCOUNTER 2024-08-30 15:40 | Outpatient (AMB) | payer OTHER, SELFPAY ==
[2024-08-30 15:43] VITALS: BP 120/84; BMI 42.9
--- NOTE | 2024-08-30 15:43 | MHC.PC.OV ---
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: No Accompanied by: Mother Allergies No Known Allergies Allergy (Verified 08/30/24 15:53) Medication List - Last Reconciled 08/30/24 by Madelin Rodriguez MD duloxetine 40 mg (2 x 20 mg) PO DAILY 90 days tirzepatide (weight loss) (Zepbound) 2.5 mg (0.5 mL) subcut QWEEK 4 weeks Tobacco use date assessed: 08/30/24 Dental Screening Dental Screen Date: 08/30/24 Did you have a dental visit in the last 12 months?: Yes Did you have a dental problem in the last 6 months where you did not have access to dental care?: No Was dental information given to patient?: Patient has dentist HPI HPI Comments History of Present Illness Details This is a 34-year-old female with mild major depression, pure hypercholesterolemia and morbid obesity that comes today for follow-up on her conditions. Depression has markedly improved with duloxetine. She has elevated cholesterol and has been doing some dietary changes. Lipid panel will be repeated. She is morbidly obese with a BMI of 42.9 and has lost some weight with tirzepatide which will be increase today. No side effects from it. [facility] Surgical History History of bilateral breast reduction surgery History of cosmetic surgery History of tooth extraction Family History Mother Hypertension Breast cancer Sleep apnea Asthma Mental health disorder Diabetes mellitus Father Hypertension Hypercholesteremia CAD (coronary artery disease) Brother Mental health disorder Social History Housing: Apartment Alcohol intake: current Alcohol intake frequency: holidays/special occasions only Alcohol type: wine Patient Tobacco Use Status: Never used Tobacco e-Cigarette/Vaping Use: Never Used Second Hand Smoke Exposure: No service: No Current occupational status: employed Current occupational exposures/hazards: No Cognitive needs: No Hearing needs: No Vision needs: No Female Reproductive History Menstrual Age of Menarche: 12 Questionnaire PHQ-9 Over the last 2 weeks, how often have you been bothered by any of the following problems? 1. Little interest or pleasure in doing things: not at all 2. Feeling down, depressed, or hopeless: not at all 3. Trouble falling or staying asleep, or sleeping too much: not at all 4. Feeling tired or having little energy: not at all 5. Poor appetite or overeating: several days 6. Feeling bad about yourself - or that you are a failure or have let yourself or your family down: several days 7. Trouble concentrating on things, such as reading the newspaper or watching television: not at all 8. Moving or speaking so slowly that other people could have noticed. Or the opposite - being so fidgety or restless that you have been moving around a lot more than usual: not at all 9. Thoughts that you would be better off or of hurting yourself in some way: not at all Total score: 2 Depression Screening Interpretation: Positive Depression Screening Follow-up: Existing condition and Follow-up Visit Requested Depression Screening Done: Yes 09554 - PHQ-9 Billing: Yes Source: Developed by Drs. Sanchez Gordon, Claudine Membreno, Ismael Justice and colleagues, with an educational cassandra from [employer]. Thrive Questionnaire Date Thrive assessed: 08/24/24 I am a: Patient What is your living situation today?: I have a steady place to live Within the past 12 months, did the food you bought not last and you didn't have the money to get more?: Never true Within the past 12 months, did you worry whether your food would run out before you got money to buy more?: Never true Do you have trouble paying for medicines?: No Do you have trouble getting transportation to medical appointments?: No Do you have trouble paying your heating and electricity bill?: No Do you have trouble taking care of your child, family member or friend?: No Do you have trouble with day-to-day activities such as bathing, preparing meals, shopping, managing finances, etc.?: No Are you currently unemployed and looking for a job?: No Are you interested in more education?: No Please select the resources that you would like help with: None Currently or been in a relationship where the following occur: No concerns reported THRIVE Score: 0 AUDIT C Alcohol Use Questionnaire (AUDIT-C) 1. How often do you have a drink containing alcohol?: Monthly or less 2. How many drinks containing alcohol do you have on a typical day when you are drinking?: 1 or 2 3. How often do you have six or more drinks on one occasion?: Never Total Score: 1 Score Reviewed/Action Taken: No RACHEL-7 AMB Questionnaire RACHEL-7 Date RACHEL - 7 assessed: 08/30/24 Feeling nervous, anxious, or on edge: 1 = Several days Not being able to stop or control worryin = Not at all Worrying too much about different things: 1 = Several days Trouble relaxin = Several days Being so restless that it is hard to sit still: 1 = Several days Becoming easily annoyed or irritable: 0 = Not at all Feeling afraid as if something awful might happen: 0 = Not at all Total RACHEL-7 score (0-4 normal; 5-9 mild; 10-14 moderate; 15-21 severe): 4 Source: Developed by Drs. Sanchez Gordon, Claudine Membreno, Ismael Justice and colleagues, with an educational cassandra from [employer]. RACHEL-7 Assessment Billing RACHEL-7 Assessment Tool: RACHEL-7 Assessment 56283 Review of Systems Const All systems reviewed & are unremarkable except as noted in HPI and below Card Denies chest pain at rest, Denies chest pain with activity, Denies edema, Denies irregular heart rhythm, Denies claudication, Denies dyspnea, Denies dyspnea on exertion, Denies orthopnea, Denies paroxysmal nocturnal dyspnea and Denies slow heart rate Resp Denies cough, Denies dyspnea and Denies dyspnea on exertion GI Denies abdominal pain, Denies change in bowel habits, Denies excessive flatus, Denies nausea and Denies vomiting Denies urinary incontinence, Denies urinary hesitancy and Denies urinary urgency Musc Denies atrophy, Denies deformity and Denies limited range of motion Skin/Breast Denies bleeding lesions, Denies changing lesions and Denies rash Physical exam (Primary Care) Vital Signs: Last Vital Signs BP 120/84 08/30/24 15:43 BMI result Body Mass Index 42.9 BMI Assessment/Plan discussion: High BMI High, discussed plan: lifestyle, weight reduction, dietary and physical activity Tobacco/Smoking Status: Tobacco use Status Tobacco use date assessed 08/30/24 08/30/24 15:49 Patient Tobacco Use Status Never used Tobacco 08/30/24 15:48 e-Cigarette/Vaping Use Never Used 08/30/24 15:48 PHQ-9: PHQ-9 Score PHQ-9: Total score 2 08/30/24 15:48 Depression Screening Interpretation: Positive Depression Screening Follow-up: Existing condition and Follow-up Visit Requested Thrive Assessment: Date of Thrive Assessment Date Thrive assessed 08/24/24 08/30/24 15:48 Currently or been in a relationship where the following occur: No concerns reported Resp Effort & Inspection: normal respiratory effort Auscultation: clear to auscultation bilaterally Cardio Jugular venous distension: no JVD Rate: regular rate Rhythm: regular rhythm Heart sounds: S1 normal heart sound present and S2 normal heart sound present Extrem General: Yes full ROM Coding Level of Care Code Est Pt Level 3 (01730) Complex EM visit Add On G2211 Diagnoses Morbid obesity with BMI of 40.0-44.9, adult E66.01; Z68.41 Mild major depression F32.0 Pure hypercholesterolemia E78.00 Additional Codes PHQ-9 - 25867 - PHQ-9 Billing: Yes ([id number]) RACHEL-7 Assessment Billing - RACHEL-7 Assessment Tool: RACHEL-7 Assessment 03551 ([id number]) Time Spent (min) 19 Assessment & Plan Assessment & Plan (1) Morbid obesity with BMI of 40.0-44.9, adult: Code(s): E66.01 - Morbid (severe) obesity due to excess calories; Z68.41 - Body mass index [BMI] 40.0-44.9, adult Category: Medical (2) Mild major depression: Code(s): F32.0 - Major depressive disorder, single episode, mild Category: Medical (3) Pure hypercholesterolemia: Code(s): E78.00 - Pure hypercholesterolemia, unspecified Category: Medical Plan Continue duloxetine for depression. Increase tirzepatide to 5 mg. Repeat lipid panel and continue low-cholesterol diet. She was advised to do 30 minutes of exercise 5 days a week and a low calorie diet. Orders: Orders Lipid Panel 4 Months E66.01 - Morbid (severe) obesity due to excess calories, E78.5 - Hyperlipidemia, unspecified, Z68.41 - Body mass index [BMI] 40.0-44.9, adult Comprehensive [place]. Panel Fast 4 Months E66.01 - Morbid (severe) obesity due to excess calories, Z68.41 - Body mass index [BMI] 40.0-44.9, adult Referrals Lead Inspector Nutrition Referral E66.01 - Morbid (severe) obesity due to excess calories, E78.00 - Pure hypercholesterolemia, unspecified, Z68.41 - Body mass index [BMI] 40.0-44.9, adult Medications: New tirzepatide (weight loss) (Zepbound) 5 mg (0.5 mL) subcut QWEEK 4 weeks 2 mL 0RF E66.01 - Morbid (severe) obesity due to excess calories, Z68.41 - Body mass index [BMI] 40.0-44.9, adult Discontinued tirzepatide (weight loss) (Zepbound) for 4 weeks Discontinued Reason: Patient Completed Course 2.5 mg (0.5 mL) subcut QWEEK 4 weeks 2 mL 0RF E66.01 - Morbid (severe) obesity due to excess calories, Z68.41 - Body mass index [BMI] 40.0-44.9, adult
--- OUTSIDE RECORDS SUMMARY | 2024-08-30 18:05 | XMS_ITS | Data Portability ---
Author Organization [facility], [address] Address [address] [place] [address] Care Team Providers Care Byproduct Engineer Name Role Phone [facility] Primary Care Provider Assessment No assessment recorded. Plan of Treatment Reminders Order Date Submit Date Provider Last Modified By Organization Details Last Modified Time Details Appointments None recorded. Lab rapid SARS CoV 2 Ag, QL IA, respiratory specimen 2022 023 [place] [facility] [address], [address] [place], [address], 3 09:20:11 rapid flu (A+B) 2022 023 [place] [address] [address] [address], [address] [place], [address], 3 10:49:36 rapid SARS CoV 2 Ag, QL IA, respiratory specimen 2022 023 [place] [address] [address], [address] [place], [address], 3 10:49:36 Referral None recorded. Procedures None recorded. Surgeries None recorded. Imaging None recorded. Medication Orders Flonase Allergy Relief 50 mcg/actuati on nasal spray,suspe nsion 2022 023 [facility] #[id number], [address] [facility], [place], [address], 3 08:13:23 Augmentin 875 mg-125 mg tablet 2022 023 [facility] #[id number], [address] [facility], [place], [address], 08:12:57 Patient TargetsNo targets recorded. Patient Instructions Encounter Date Encounter Id Patient Instructions Last Modified By Organization Details Last Modified Time 03/31/2022 [id number] Acute Sinusitis: Care Instructions [email or web address] Not available 03/31/2022 10:49:36 08/25/2022 [id number] Acute Sinusitis: Care Instructions [email or web address] Not available 08/25/2022 09:03:42 viral infections : care instructions [email or web address] Not available 08/25/2022 09:04:33 Rest. Drink plenty of fluids. Over the counter sudafed and mucinex may be of some benefit for your symptoms. Use per package instructions. See printed instructions. Follow-up with your doctor if no improvement in a few days. Seek Emergency Medical evaluation for any worsening symptoms. [email or web address] Not available 08/25/2022 09:05:43 Reason for Referral None Reported. Results Created Date Observation Date Name Description Value Unit Range Abnormal Flag Note LastModifiedBy Organization Detail LastModifiedTime 03/31/1903/31/2022 rapid SARS CoV 2 Ag, QL IA, respi rator y speci men Unknown Analyte Normal =Negat mariano Not Available [address] [place], [address], 03/31/2022 10:13:16 03/31/19 23 03/31/2022 rapid SARS CoV 2 Ag, QL IA, respi rator y speci men Unknown Analyte negati ve Not Available [address] [place], [address], 03/31/2022 10:13:16 03/31/19 23 03/31/2022 rapid flu (A+B) Unknown Analyte Normal = Negati ve Not Available [address] [place], [address], 03/31/2022 10:13:09 03/31/19 23 03/31/2022 rapid flu (A+B) Unknown Analyte negati ve Not Available [address] [place], [address], 03/31/2022 10:13:09 03/31/19 23 03/31/2022 rapid flu (A+B) Unknown Analyte Normal = Negati ve Not Available [address] [place], [address], 03/31/2022 10:13:09 03/31/19 23 03/31/2022 rapid flu (A+B) Unknown Analyte negati ve Not Available [address] [place], [address], 03/31/2022 10:13:09 08/26/19 23 08/25/2022 rapid SARS CoV 2 Ag, QL IA, respi rator y speci men Unknown Analyte Normal =Negat mariano Not Available [address] [place], [address], 08/25/2022 09:03:38 08/26/1908/25/2022 rapid SARS CoV 2 Ag, QL IA, respi rator y speci men Unknown Analyte negati ve Not Available [address] [place], [address], 08/25/2022 09:03:38 Result Notes None recorded. Problems No Known Problems Procedures Surgical History Date Name Laterality Status Provider Name and Address Organization Details Recorded Time operation on oral cavity completed ROSENDO IVAN PA - [facility] 03/31/2022 10:09:36 Breast reduction completed ROSENDO IVAN PA - [facility] 03/31/2022 10:09:43 liposuction of subcutaneous tissue completed ROSENDO IVAN PA - [facility] 03/31/2022 10:09:50 Imaging Results None recorded. Procedure Notes None recorded. Medical Equipment None Reported. Allergies Allergen ID Allergen Name Allergen Category Reaction Reaction Severity Criticality Documentation Date Start Date Code Code System Note Provider Name and Address Organization Details Recorded Time 719392 grass pollen environme nt,medica tion Not available Not available Not available 08/25/2022 10501 UNK LATASHA mckay PA - [facility] 3 08:12:46 Medications Name Sig Start Date Stop Date Status Note LastModified by Organization Details LastModified Time Benadryl active Not Available Not Avai lable Not Available naltrexone 8 mg-bupropio n 90 mg tablet,exte nded release TAKE 2 TABLETS BY ORAL ROUTE 2 TIMES PER DAY IN THE MORNING AND EVENING active Not Available Not Available No t Available Flonase Allergy Relief 50 mcg/actuati on nasal spray,suspe nsion [place] 1 spray every day by intranasa l route as needed. 08/25 completed Not Available Not Available Not Available Vitals Date Recorded Body height Body mass index (BMI) Body weight Respiratory rate Oxygen saturation Oxygen saturation in Arterial blood by Pulse oximetry Heart rate Body temperature Systolic blood pressure Diastolic blood pressure Provider Name and Address Organization Details Last Updated DateTime 3 154.94 cm 38.9 kg/m2 43382.0 3 g 18 /min 100 % 100 % 87 /min 98.1 [degF] 118 mm[Hg] 78 mm[Hg] ROSENDO KEY RA PA - [facility] 3 10:12:23 Date Recorded Body height Body mass index (BMI) Body weight Respiratory rate Oxygen saturation Oxygen saturation in Arterial blood by Pulse oximetry Heart rate Body temperature Systolic blood pressure Diastolic blood pressure Provider Name and Address Organization Details Last Updated DateTime 3 154.94 cm 39.5 kg/m2 70884.8 1 g 18 /min 98 % 98 % 92 /min 98.2 [degF] 124 mm[Hg] 78 mm[Hg] LATASHA HATCH PA - [facility] 3 08:16:17 Social History Question Answer Notes LastModified by Organizat ion Details LastModified Time Tobacco Smoking Status Never Smoker ROSENDO MOORE-KELLY null, PA - [facility] 03/31/2022 10:10:28 Have You Recently Traveled Abroad? No Information not available 03/31/2022 Sex: Unknown Functional Status Question Answer Note LastModified by Organizat ion Details LastModified Time Do you use any illicit or recreational drugs? No Information not available 03/31/2022 Do you or have you ever used any other forms of tobacco or nicotine? No Information not available 03/31/2022 What is your level of alcohol consumption? Occasional Information not available 03/31/2022 Mental Status None recorded. Family History Relationship Description Onset Age of this Age Resolved Age Notes LastModified by Organization Details LastModified Time Unspecified Relation Asthma Not available 03/21 10:10:06 Unspecified Relation Diabetes mellitus Not available 01/2023 10:10:17 Medical History No medical history recorded. Gynecological History Statement/Question Response Date of LMP 08/14/2022 Is there any chance of ? No LMP Definite Obstetrics History GPAL:G 0 P 0 0 0 0 Immunizations Vaccine Type Date Status Note Provider Nam e and Address Organization Details Recorded Time COVID-19, mRNA, LNP-S, PF, 30 mcg/0.3 mL dose 1 completed ROSENDO MOORE-KELLY null, PA - [facility] 03/31/2022 10:07:56 HPV, quadrivalent 7 completed ROSENDO MOORE-KELLY null, PA - [facility] 03/31/2022 10:07:56 COVID-19, mRNA, LNP-S, PF, 30 mcg/0.3 mL dose 1 completed ROSENDO MOORE-KELLY null, PA - [facility] 03/31/2022 10:07:57 OPV 4 completed ROSENDO MOORE-KELLY null, PA - [facility] 03/31/2022 10:07:57 Hep B, adolescent or pediatric 3 completed ROSENDO MOORE-KELLY null, PA - [facility] 03/31/2022 10:07:57 DTP 0 completed ROSENDO MOORE-KELLY null, PA - [facility] 03/31/2022 10:07:57 HPV, quadrivalent 9 completed ROSENDO MOORE-KELLY null, PA - [facility] 03/31/2022 10:07:57 DTP 0 completed ROSENDO MOORE-KELLY null, PA - [facility] 03/31/2022 10:07:57 OPV 0 completed ROSENDO MOORE-KELLY null, PA - [facility] 03/31/2022 10:07:57 HPV, quadrivalent 8 completed ROSENDO MOORE-KELLY null, PA - [facility] 03/31/2022 10:07:57 Hep B, adolescent or pediatric 2 completed ROSENDO MOORE-KELLY null, PA - [facility] 03/31/2022 10:07:57 MMR 4 completed ROSENDO MOORE-KELLY null, PA - [facility] 03/31/2022 10:07:57 DTP 4 completed ROSENDO MOORE-KELLY null, PA - [facility] 03/31/2022 10:07:57 Tdap 0 completed ROSENDO MOORE-KELLY null, PA - [facility] 03/31/2022 10:07:57 Tdap 9 completed ROSENDO MOORE-KELLY null, PA - [facility] 03/31/2022 10:07:57 OPV 0 completed ROSENDO MOORE-KELLY null, PA - [facility] 03/31/2022 10:07:57 OPV 1 completed ROSENDO MOORE-KELLY null, PA - [facility] 03/31/2022 10:07:57 OPV 2 completed ROSENDO MOORE-KELLY null, PA - [facility] 03/31/2022 10:07:57 MMR 1 completed ROSENDO MOORE-KELLY null, PA - [facility] 03/31/2022 10:07:57 meningococcal MCV4P 8 completed ROSENDODAPHNEY MOORE-KELLY null, PA - [facility] 03/31/2022 10:07:57 DTP 1 completed ROSENDO MOORE-KELLY null, PA - [facility] 03/31/2022 10:07:57 Hep B, adolescent or pediatric 2 completed ROSENDO MOORE-KELLY null, PA - [facility] 03/31/2022 10:07:57 Td (adult), 2 Lf tetanus toxoid, preservative free, adsorbed 2 completed ROSENDO MOORE-KELLY null, PA - [facility] 03/31/2022 10:07:57 DTP 2 completed ROSENDO MOORE-KELLY null, PA - [facility] 03/31/2022 10:07:57 Past Encounters Encounter ID Performer Location Encounter Start Date Encounter Closed Date Diagnosis/Indication Diagnosis SNOMED-CT Code Diagnosis ICD10 Code Diagnosis Note [id number] [place] [address] 02/24/2020 15:10:02 02/24/2020 16:35:34 [id number] [place] [address] 06/23/2021 09:10:44 06/23/2021 11:26:25 [id number] [place] [address] 07/28/2017 16:27:32 07/28/2017 18:22:14 [id number] [place] [address] 03/09/2021 08:29:28 03/09/2021 11:21:37 [id number] [place] [address] 05/29/2019 09:36:26 05/29/2019 10:36:42 [id number] [address] [facility] [address] [place] [address] 04/18/2016 13:06:11 04/18/2016 14:16:39 [id number] CHRISTINE SWANSON [address] [facility] [address] [place] [address] 03/31/2022 09:48:41 03/31/2022 10:52:46 Acute sinusitis 80805720 J01.90 [id number] Lian Valle MD [address] [address] [place] [address] 08/25/2022 08:04:16 08/25/2022 09:27:31 Viral syndrome 348272622 B34.9 Acute sinusitis 03407679 J01.90 Health Concerns Section Related Observation LastModified by Organization Detai ls LastModified Time None Recorded Concern Status LastModified by Organization Details LastModified Time None Recorded Advance Directives Directive None Recorded Payers Insurance Date Sequence Insurance Name Policy Number Policy Morrissey Covered Member ID Morrissey Member ID Guarantor Name 08/25/2022 1 [employer]OR[employer] [id number] Yesi Hatfield [id number] Yesi Hatfield 08/25/2022 1 [facility] [id number] Yesi Hatfield [id number] Yesi Hatfield Notes Date Note Type Note Provider Name and Address Organization Details Recorded Time 03/31/2022 text/html Yesi is a 31 yo F here for evaluation of sinus pressure, nasal congestion, JURADO, and cough onset 2 weeks. Did rapid covid test and was negative. Has tried OTC meds without relief. CHRISTINE LAWRENCE JD [facility] [place], [address], PA - [facility] 03/31/2022 10:52:46 08/25/2022 text/html Sinus Complaints UCReported bypatient.Location:sin us pain; left side; right side Associated Symptoms:no nasal discharge; no fever; no nausea or vomiting; No post nasal drip; no ear fullness; no nasal itching; no eye itching; no dizziness;nasal passage blockage bilaterally;cough; Trouble breathing due to nasal congestion. Irritated throat. Onset/Timing:initially started 4days ago Quality:Mild discomfort. Duration:constant Severity:mild Context:no recent sick contacts; not worse with seasonal allergen exposure Risk Factors:no current smoking or tobacco use Alleviating factors:nothing gives relief Aggravating factors:nothing makes it worse Prior TreatmentTreated March 2022 with augmentin and flonase for sinusitis.Notes:32 year old female presenting for evaluation of chills, nasal congestion, sinus pressure (ethmoids), irritated throat, occasionally productive cough, chest congestion and body aches for the past 4 days. No fever, generalized headache, rash, stiff neck, chest pain, shortness of breath, GI symptoms. Lian Valle MD [address] [place] [address] [place], [address], PA - [facility] 08/25/2022 09:33:24 OBGyn Episode No OBEpisode recorded.
== END 2024-08-30 16:09 | disposition home or self-care (01) ==
LOC: HO.HMCH 15:41
PROVIDERS: PCP Internal Medicine; Visit Provider Internal Medicine
DX: E66.01 Morbid (severe) obesity due to excess calories (principal); Z68.41 Body mass index [BMI] 40.0-44.9, adult; F32.0 Major depressive disorder, single episode, mild; E78.00 Pure hypercholesterolemia, unspecified

== ENCOUNTER → 2024-08-30 15:40 | Outpatient (BNVA) | payer OTHER, SELFPAY | PROVIDERS: PCP Internal Medicine; Visit Provider Internal Medicine | DX: E66.01 Morbid (severe) obesity due to excess calories (principal); F32.A Depression, unspecified; E78.00 Pure hypercholesterolemia, unspecified; F32.0 Major depressive disorder, single episode, mild; Z68.41 Body mass index [BMI] 40.0-44.9, adult | CPT/HCPCS: 96127 ==

== ENCOUNTER 2024-10-08 10:44 | Outpatient (AMB) | payer OTHER, SELFPAY ==
--- NOTE | 2024-10-08 11:08 | A.OFFVIS_ITS ---
VS Expanded 10/08/24 11:11 10/10/24 14:44 Height 5 ft 1 in 5 ft 1 in Weight 224 lb 13.944 oz 225 lb BMI 42.5 42.5 Intake Visit Reasons: Pure hypercholesterolemia Allergies No Known Allergies Allergy (Verified 08/30/24 15:53) Nutrition Presentation Details: Pt presents for MNT for hypercholesterolemia Pt reports always working on diet modifications, reports wt at 245 lbs over 1 yr ago, admits to stress eating Was physically active int he past, participating in gym/sports/but this has lessened r/t knee pain typical meals: home made, when eating out choosing healthier options Sometimes skips meals has cut out sodas fast food: taco mittal, rice/tuna food frequency fruits: 0-1/d milk/ with coffee or in cereals vegetables: 1/wk fish: 1x/wk BS Monitoring Most Recent Diabetes Results: Cholesterol, (<200) 198 mg/dL 04/02/24 HDL Cholesterol, (>40) 54 mg/dL 04/02/24 Triglycerides, (<150) 104 mg/dL 04/02/24 Creatinine, (0.5-1.4) 0.74 mg/dL 04/02/24 BUN, (9-16) 6 mg/dL L 04/02/24 Sodium, (135-145) 140 mmol/L 04/02/24 Potassium, (3.3-5.1) 4.9 mmol/L 04/02/24 Chloride, (96-108) 110 mmol/L H 04/02/24 Carbon Dioxide, (22-29) 23 mmol/L 04/02/24 Calcium, (8.4-10.2) 8.8 mg/dL 04/02/24 AST, (5-31) 42 U/L H 04/02/24 ALT, (0-31) 14 U/L 04/02/24 Total Protein, (6.5-8.0) 8.2 g/dL H 04/02/24 Albumin, (3.5-5.0) 3.6 g/dL 04/02/24 MEZ-Wylcnlg-Uf.Jeor Equation Height: 5 ft 1 in Weight: 225 lb Resting Metabolic Rate: 1654.74 Calculated Activity Level: Sedentary Calories Needed to Maintain Weight: 1985.69 Diagnosis Nutrition problem #1: food nutri know defi As related to (etiology) #1: diagnosis As evidenced by (sign/symptom) #1: knowledge deficit of diet PFSH Surgical History History of bilateral breast reduction surgery History of cosmetic surgery History of tooth extraction Family History Mother Hypertension Breast cancer Sleep apnea Asthma Mental health disorder Diabetes mellitus Father Hypertension Hypercholesteremia CAD (coronary artery disease) Brother Mental health disorder Social History Housing: Apartment Alcohol intake: current Alcohol intake frequency: holidays/special occasions only Alcohol type: wine Patient Tobacco Use Status: Never used Tobacco e-Cigarette/Vaping Use: Never Used Second Hand Smoke Exposure: No service: No Current occupational status: employed Current occupational exposures/hazards: No Cognitive needs: No Hearing needs: No Vision needs: No Female Reproductive History Menstrual Age of Menarche: 12 Assessment & Plan Assessment & Plan (1) Morbid obesity with BMI of 40.0-44.9, adult: Code(s): E66.01 - Morbid (severe) obesity due to excess calories; Z68.41 - Body mass index [BMI] 40.0-44.9, adult Category: Medical Plan: Wt: 102 Kg ( 10/12 ) Est kcal needs as per MSJ: 2000 (40% carb, 30% protein/fat) Est fluid needs as per 25-30 ml/d: 3100 Est prot per day as per 1 g/kg bw: 100 Recommend fiber intake : 8-10 g per day and gradually increase to 25-28 g per day for women and 35-38 g for men or as tolerated Recommend sodium intake per day: less than 2300 mg Educated patient on: ( R = reviewed V = verbalizes understanding N/R = needs review N/A = not applicable * Food sources of carbohydrate, adequate serving sizes and its role in various health conditions: R * Differences between complex carbohydrates a simple carbohydrates, role of fiber in diet: R * Lean protein sources of foods: R * Differences between types of fats and role in diet (mono on saturated fat fatty acids, saturated fatty acids, trans fats): R V N/R * Food sources of sodium in salt and healthy modifications for heart health in kidney health: R V R/V * Vitamins and minerals: R V N/R * Healthy plate method concept: R * Physical activity: Benefits a precaution: R * Patient Instructions: Work on having 3 meals/day consisting of 45 g carb or less per meal following healthy plate method, and 0-20 g carb as snack if needed Practice mindful eating Keep hydrated by having water/almond milk, diluted beverages with water, soup , vegetables/fruits which also have water inthem Coding Level of Care Code Nutr Indiv Intake (61080) Diagnoses Morbid obesity with BMI of 40.0-44.9, adult E66.01; Z68.41 Time Spent (min) 30
[2024-10-08 11:11] VITALS: BMI 42.5
--- OUTSIDE RECORDS SUMMARY | 2024-10-08 11:50 | XMS_ITS | Data Portability ---
Author Organization [facility], [address] Address [address] [place] [address] Care Team Providers Care Consultant Dietitian Name Role Phone [facility] Primary Care Provider Assessment No assessment recorded. Plan of Treatment Reminders Order Date Submit Date Provider Last Modified By Organization Details Last Modified Time Details Appointments None recorded. Lab rapid SARS CoV 2 Ag, QL IA, respiratory specimen 2022 023 [facility] [address], [address] [place], [address], 3 09:20:11 rapid flu (A+B) 2022 023 [place] [address] [facility] [address], [address] [place], [address], 3 10:49:36 rapid SARS CoV 2 Ag, QL IA, respiratory specimen 2022 023 [place] [address] [address], [address] [place], [address], 3 10:49:36 Referral None recorded. Procedures None recorded. Surgeries None recorded. Imaging None recorded. Medication Orders Flonase Allergy Relief 50 mcg/actuati on nasal spray,suspe nsion 2022 023 [facility]/Pharmacy #[id number], [address], [place], [address], 3 08:13:23 Augmentin 875 mg-125 mg tablet 2022 023 [facility][id number], [address], [place], [address], 3 08:12:57 Patient TargetsNo targets recorded. Patient Instructions Encounter Date Encounter Id Patient Instructions Last Modified By Organization Details Last Modified Time 03/31/2022 [id number] Acute Sinusitis: Care Instructions [email or web address] Not available 03/31/2022 10:49:36 08/25/2022 [id number] Acute Sinusitis: Care Instructions [email or web address] Not available 08/25/2022 09:03:42 viral infections : care instructions [email or web address] Not available 08/25/2022 09:04:33 Rest. Drink plenty of fluids. Over the counter sudafed and mucinex may be of some benefit for your symptoms. Use per package instructions. See printed instructions. Follow-up with your doctor if no improvement in a few days. Seek Emergency Medical evaluation for any worsening symptoms. Not available 08/25/2022 09:05:43 Reason for Referral None Reported. Results Created Date Observation Date Name Description Value Unit Range Abnormal Flag Note LastModifiedBy Organization Detail LastModifiedTime 03/31/1903/31/2022 rapid SARS CoV 2 Ag, QL IA, respi rator y speci men Unknown Analyte Normal =Negat mariano Not Available [address] [place], [address], 03/31/2022 10:13:16 03/31/19 23 03/31/2022 rapid SARS CoV 2 Ag, QL IA, respi rator y speci men Unknown Analyte negati ve Not Available [address] [place], [address], 03/31/2022 10:13:16 03/31/19 23 03/31/2022 rapid flu (A+B) Unknown Analyte Normal = Negati ve Not Available [address] [place], [address], 03/31/2022 10:13:09 03/31/19 23 03/31/2022 rapid flu (A+B) Unknown Analyte negati ve Not Available [address] [place], [address], 03/31/2022 10:13:09 03/31/19 23 03/31/2022 rapid flu (A+B) Unknown Analyte Normal = Negati ve Not Available [address] [place], [address], 03/31/2022 10:13:09 03/31/19 23 03/31/2022 rapid flu (A+B) Unknown Analyte negati ve Not Available [address] [place], [address], 03/31/2022 10:13:09 08/26/19 23 08/25/2022 rapid SARS CoV 2 Ag, QL IA, respi rator y speci men Unknown Analyte Normal =Negat mariano Not Available [address] [place], [address], 08/25/2022 09:03:38 08/26/19 23 08/25/2022 rapid SARS CoV 2 Ag, QL IA, respi rator y speci men Unknown Analyte negati ve Not Available [address] [place], [address], 08/25/2022 09:03:38 Result Notes None recorded. Problems No Known Problems Procedures Surgical History Date Name Laterality Status Provider Name and Address Organization Details Recorded Time operation on oral cavity completed ROSENDO IVAN PA - [facility] 03/31/2022 10:09:36 Breast reduction completed ROSENDO IVAN PA - [facility] 03/31/2022 10:09:43 liposuction of subcutaneous tissue completed ROSENDO IVAN MD - [facility] 03/31/2022 10:09:50 Imaging Results None recorded. Procedure Notes None recorded. Medical Equipment None Reported. Allergies Allergen ID Allergen Name Allergen Category Reaction Reaction Severity Criticality Documentation Date Start Date Code Code System Note Provider Name and Address Organization Details Recorded Time [id number] grass pollen environme nt,medica tion Not available Not available Not available 08/25/2022 33940 UNK LATASHA mckay PA - [facility] 3 08:12:46 Medications Name Sig Start Date Stop Date Status Note LastModified by Organization Details LastModified Time Augmentin 875 mg-125 mg tablet Take 1 tablet every 12 hours by oral route after meals for 10 days. 08/25 completed Not Available Not Available Not Available Benadryl active Not Available Not Avai lable Not Available naltrexone 8 mg-bupropio n 90 mg tablet,exte nded release TAKE 2 TABLETS BY ORAL ROUTE 2 TIMES PER DAY IN THE MORNING AND EVENING active Not Available Not Available No t Available Flonase Allergy Relief 50 mcg/actuati on nasal spray,suspe nsion Destrehan 1 spray every day by intranasa l route as needed. 08/25 completed Not Available Not Available Not Available Vitals Date Recorded Body height Body mass index (BMI) Body weight Respiratory rate Oxygen saturation Oxygen saturation in Arterial blood by Pulse oximetry Heart rate Body temperature Systolic And Diastolic Provider Name and Address Organization Details Last Updated DateTime 3 154.94 cm 38.9 kg/m2 91523.0 3 g 18 /min 100 % 100 % 87 /min 98.1 [degF] 118/78 mm[Hg] ROSENDO KEY RA MD - [facility] 3 10:12:23 Date Recorded Body height Body mass index (BMI) Body weight Respiratory rate Oxygen saturation Oxygen saturation in Arterial blood by Pulse oximetry Heart rate Body temperature Systolic And Diastolic Provider Name and Address Organization Details Last Updated DateTime 3 154.94 cm 39.5 kg/m2 32829.8 1 g 18 /min 98 % 98 % 92 /min 98.2 [degF] 124/78 mm[Hg] LATASHA HATCH PA - [facility] 3 08:16:17 Social History Question Answer Notes LastModified by Organizat ion Details LastModified Time Tobacco Smoking Status Never Smoker ROSENDO MOORE-KELLY woody, PA - [facility] 03/31/2022 10:10:28 Have [...] [facility] 03/31/2022 10:07:57 meningococcal MCV4P 8 completed ROSENDO MOORE-KELLY null, PA - [...] SNOMED-CT Code Diagnosis ICD10 Code Diagnosis Note [id number] [address] [place] [address] 02/24/2020 15:10:02 02/24/2020 16:35:34 [id number] [address] [place] [address] 06/23/2021 09:10:44 06/23/2021 11:26:25 [id number] [address] [place] [address] 07/28/2017 16:27:32 07/28/2017 18:22:14 [id number] [address] [place] [address] 03/09/2021 08:29:28 03/09/2021 11:21:37 [id number] [address] [facility] [place] [address] 05/29/2019 09:36:26 05/29/2019 10:36:42 [id number] [address] [facility] [place] [address] 04/18/2016 13:06:11 04/18/2016 14:16:39 [id number] CHRISTINE SWANSON [address] [facility] [place] [address] 03/31/2022 09:48:41 03/31/2022 10:52:46 Acute sinusitis 66420768 J01.90 [id number] Lian Valle [facility] [facility] [address] [facility] [place] [address] 08/25/2022 08:04:16 08/25/2022 09:27:31 Viral syndrome 112134713 B34.9 Acute sinusitis [id number] J01.90 Health Concerns Section Related Observation LastModified by Organization Detai ls LastModified Time None Recorded Concern Status LastModified by Organization Details LastModified Time None Recorded Advance Directives Directive None Recorded Payers Insurance Date Sequence Insurance Name Policy Number Policy Morrissey Covered Member ID Morrissey Member ID Guarantor Name 08/25/2022 1 [facility] [id number] Yesi Hatfield [id number] Yesi Hatfield 08/25/2022 1 [facility] [id number] Yesi Hatfield [id number] Yesi Hatfield Notes Date Note Type Note Provider Name and Address Organization Details Recorded Time 03/31/2022 text/html Yesi is a 31 yo F here for evaluation of sinus pressure, nasal congestion, JURADO, and cough onset 2 weeks. Did rapid covid test and was negative. Has tried OTC meds without relief. CHRISTINE LAWRENCE JD [facility] [place], [address], PA - [facility] 03/31/2022 10:52:46 08/25/2022 [...] of breath, GI symptoms. Lian Valle MD [address] [facility] [place], [address], PA - [facility] 08/25/2022 09:33:24 OBGyn Episode No OBEpisode recorded.
[2024-10-10 14:44] VITALS: BMI 42.5
== END 2024-10-08 11:45 | disposition home or self-care (01) ==
LOC: HO.ENCR 10:45
PROVIDERS: PCP Internal Medicine; Visit Provider Dietitian, Registered
DX: E66.01 Morbid (severe) obesity due to excess calories (principal); Z68.41 Body mass index [BMI] 40.0-44.9, adult

== ENCOUNTER → 2024-10-08 10:44 | Outpatient (BNVA) | payer OTHER, SELFPAY | PROVIDERS: PCP Internal Medicine; Visit Provider Dietitian, Registered | DX: E66.01 Morbid (severe) obesity due to excess calories (principal); Z68.41 Body mass index [BMI] 40.0-44.9, adult | CPT/HCPCS: 97802 ==